=== PATIENT | female | born 1980 | race Caucasian/White ===

== ENCOUNTER 2017-03-13 17:37 | Emergency (ER) | payer OTHER ==
[~2017-03-13] VITALS: Ht 160 cm; Wt 89.8 kg
--- NOTE | 2017-03-13 18:54 | ED GENERAL ADULT ---
History of Present Illness General Chief Complaint: General Adult Stated Complaint: BRONCHITIS/MULTIPLE COMPLAINTS Source: patient Exam Limitations: no limitations Vital Signs & Intake/Output Vital Signs & Intake/Output Vital Signs Date Time Temp Pulse Resp B/P Pulse O2 O2 Flow FiO2 Ox Delivery Rate 03/13 2101 96.7 82 18 141/86 97 Room Air 03/13 1903 98 03/13 1850 Room Air Room Air 03/13 1743 97.3 100 18 170/100 97 Room Air Allergies Coded Allergies: venom-honey bee (HIVES ON LOCATION 03/13/17) Reconcile Medications Albuterol Sulfate (Proair Hfa) 90 MCG HFA.AER.AD 2 PUF INH AD PRN RESPIRATORY (Reported) Ibuprofen (Advil) 200 MG CAPSULE 4 CAP PO TID PAIN (Reported) Oxycodone HCl/Acetaminophen (Percocet 5-325 MG Tablet) 5 MG-325 MG TABLET 1 TAB PO BID pain Prednisone 10 MG TABLET 1 TAB PO BID asthma 4 tabs days 1-3 3 tabs days 4-6 2 tabs days 7-9 1 tab days 10-12 Triage Note: PT WITH MULTIPLE COMPLAINTS WAS SEEN LAST WEEK AT [facility] AND WAS TREATED WITH ABT FOR BRONCHITIS, STATES THAT SHE HAS BEEN GOOGLING HER SYMPTOMS AND IS UNSURE IF SHE WAS TREATED RIGHT. ALSO STATES THAT SHE HAS BEEN HAVING A PIAN IN HER R LEG Triage Nurses Notes Reviewed? yes Onset: Abrupt Duration: day(s):, constant, continues in ED Timing: recent history Injury Environment: home Severity: moderate, severe No Modifying Factors: none : No Patient currently breastfeeds: No HPI: 36-year-old female comes into emergency room for further evaluation of left- sided chest pain that radiates into her left arm and shoulder. Symptoms in the going on continuously for one week. She was recently diagnosed bronchitis and finished a course of azithromycin and prednisone. She smokes daily. She denies any shortness of breath. Patient reports that she has some mild swelling to her right foot. She was concerned about blood clot. Denies any control. Cough with some mucus production. Denies any other associated symptoms. (GARY MCCANN) Past History Travel History Traveled to [place] past 21 day No Medical History Any Pertinent Medical History? see below for history Neurological: NONE EENT: NONE Cardiovascular: NONE Respiratory: NONE Gastrointestinal: NONE Hepatic: NONE Renal: NONE Musculoskeletal: NONE Psychiatric: NONE Endocrine: NONE Blood Disorders: NONE Cancer(s): NONE WRAPPER SORTER/Reproductive: NONE Surgical History Surgical History: non-contributory Psychosocial History What is your primary language Barbadian Tobacco Use: Never used ETOH Use: denies use Illicit Drug Use: denies illicit drug use Family History Hx Contributory? No (GARY MCCANN) Review of Systems Review of Systems Constitutional: Reports: see HPI. EENTM: Reports: no symptoms. Respiratory: Reports: see HPI. Cardiovascular: Reports: see HPI. GI: Reports: no symptoms. Genitourinary: Reports: no symptoms. Musculoskeletal: Reports: no symptoms. Skin: Reports: no symptoms. Neurological/Psychological: Reports: no symptoms. Hematologic/Endocrine: Reports: no symptoms. Immunologic/Allergic: Reports: no symptoms. All Other Systems: Reviewed and Negative (GARY MCCANN) Physical Exam Physical Exam General Appearance: well developed/nourished, no apparent distress, alert Head: atraumatic, normal appearance Eyes: Bilateral: normal appearance, EOMI. Ears, Nose, Throat: normal pharynx, hearing grossly normal Neck: normal inspection Respiratory: normal breath sounds, no respiratory distress Cardiovascular: regular rate/rhythm Back: normal inspection Extremities: normal inspection, normal range of motion Neurologic/Psych: awake, alert, oriented x 3, normal gait, normal mood/affect Skin: intact, normal color Core Measures ACS in differential dx? No CVA/TIA Diagnosis: No Severe Sepsis Present: No Septic Shock Present: No (GARY MCCANN) Progress Differential Diagnoses I considered the following diagnoses in my evaluation of the patient: Bronchitis, pneumonia, pulmonary embolism, NC, DVT, COPD, Plan of Care: Orders Procedure Date/time Status TROPONIN LEVEL 03/13 1854 Complete HUMAN BETA HCG SCREEN 03/13 1854 Complete D-DIMER 03/13 1854 Complete COMPREHENSIVE METABOLIC PANEL 03/13 1854 Complete CBC WITHOUT DIFFERENTIAL 03/13 1854 Complete EKG 03/13 1854 Active Laboratory Tests 03/13/17 1908: Anion Gap 10, Estimated GFR > 60, BUN/Creatinine Ratio 25.0, Glucose 99, Calcium 9.5, Total Bilirubin 0.4, AST 15, ALT 39, Alkaline Phosphatase 79, Troponin I < 0.01, Total Protein 6.7, Albumin 3.8, Globulin 2.9, Albumin/Globulin Ratio 1.3, Total Beta HCG NEGATIVE, D-Dimer < 200, CBC w Diff NO MAN DIFF REQ, RBC 5.04, MCV 88.2, MCH 29.8, RDW 14.5, MPV 6.8 L, Gran % 57.1, Lymphocytes % 31.1, Monocytes % 5.1, Eosinophils % 6.3 H, Basophils % 0.4, Absolute Granulocytes 7.9 H, Absolute Lymphocytes 4.3 H, Absolute Monocytes 0.7 H, Absolute Eosinophils 0.9, Absolute Basophils 0.1, PUBS MCHC 33.8 Diagnostic Imaging: Viewed by Me: Radiology Read. Discussed w/RAD: Radiology Read. Radiology Impression: SERVICE DATE: 03/13/17 EXAM TYPE: RAD - XRY-CHEST XRAY, PA AND LATERAL EXAMINATION: CHEST 2 VIEWS CLINICAL INFORMATION: Chest pain. COMPARISON: None. TECHNIQUE: PA and lateral views of the chest were obtained. FINDINGS: The cardiac silhouette is not enlarged. The mediastinal and hilar contours are unremarkable. There are neither pleural effusions nor pneumothoraces. There are no consolidations. The osseous structures are unremarkable. IMPRESSION: No evidence for acute disease. Initial ED EKG: normal intervals, normal QRS complex, normal sinus rhythm, rate (77), Shortened SD interval (GARY MCCANN) Departure Departure Disposition: HOME OR SELF CARE Condition: Stable Clinical Impression Primary Impression: Bronchitis Secondary Impressions: Chest wall pain, Shortened SD interval Referrals: PATIENT HAS NO PRIMARY CARE DR (PCP/Family) Additional Instructions: Take prednisone and Percocet as prescribed. Follow-up with your primary care doctor. Go over EKG with your primary care doctor. Return if any concerns worsening symptoms. Please go over all results of today's visit with your primary care doctor. Contact your primary care doctor to let them know you were here in the emergency room. There may be nonspecific findings which may not be related to your visit today here in the emergency room but may require further evaluation and chronic monitoring by your primary care doctor. If you had a laceration today the chance of foreign body always remains. You should follow-up with your primary care doctor for recheck in 3-5 days for a wound check. If you had an x-ray done there is a chance that a fracture could have been missed on initial read and you should follow-up with your primary care doctor for repeat x-rays if symptoms persist. If your blood pressure was elevated here in the emergency room please have rechecked by her primary care doctor within the next 48 hours by your primary care doctor. If you were prescribed a narcotic here in the emergency room or any type of controlled substances you're not allowed to drive while taking this medication or operate any type of heavy machinery. Narcotics can make you feel lightheaded dizziness nausea and can cause constipation. You may need to flower picker a stool softener. Thank you for choosing [facility] emergency room. Please return to the emergency room immediately if you have any other concerns worsening of symptoms. Departure Forms: Customer Survey General Discharge Information Prescriptions: Current Visit Scripts Oxycodone HCl/Acetaminophen (Percocet 5-325 MG Tablet) 1 TAB PO BID #10 TAB Prednisone 1 TAB PO BID #30 TAB 4 tabs days 1-3 3 tabs days 4-6 2 tabs days 7-9 1 tab days 10-12 Comments 03/13/2017 9:24:58 PM Patient clinically looks well. Patient is nontoxic-appearing. Patient is in no apparent distress. Symptoms are most consistent with bronchitis and muscular pain. Chest pain is reproducible. Negative d-dimer. No suspicion for pulmonary embolism. Her chest pain has been continuous for one week and she has a normal EKG in regards to no ST segment elevation. Case discussed with Dr. Ramsey. EKG reviewed with Dr. Ramsey. Patient has no cardiac palpitations at all. Follow-up with primary care doctor. Copy of EKG provided to the patient. Return if any other concerns. Patient started back on prednisone for bronchitis. Reevaluated multiple times. All questions address. Patient understands and agrees with plan of care. (MARGARET ENGLAND,GARY) PA/[employer]ER [employer] Co-Sign Statement Statement: ED Attending supervision documentation- [] I saw and evaluated the patient. I have also reviewed all the pertinent lab results and diagnostic results. I agree with the findings and the plan of care as documented in the PA's/TE[employer]'s documentation. [X] I have reviewed the ED Record and agree with the PA's/TE[employer]'s documentation. [] Additions or exceptions (if any) to the PAs/TE[employer]ER [employer]'s note and plan are summarized below: [] (RANI SOLIS,DESIRAE Campbell) Critical Care Note Critical Care Note Critical Care Time: non-applicable (MARGARET ENGLAND,GARY)
[2017-03-13] MEDS ORDERED: ADVIL200 M1 PO (19:11)
[2017-03-13] MEDS ORDERED: PROAIR HFA8.5 GM INH (19:11)
[2017-03-13 19:13] LABS: ABSOLUTE BASOPHIL COUNT 0.1 /CUMM (0.0-0.2); ABSOLUTE EOSINOPHIL COUNT 0.9 /CUMM (0.0-0.7); ABSOLUTE GRANULOCYTE CT 7.9 /CUMM (1.4-6.5); ABSOLUTE LYMPH COUNT 4.3 /CUMM (1.2-3.4); ABSOLUTE MONOCYTE COUNT 0.7 /CUMM (0.10-0.60); BASOPHIL % 0.4 % (0.0-2.0); EOSINOPHIL % 6.3 % (0-5); GRANULOCYTE % 57.1 % (42.2-75.2); HEMATOCRIT 44.5 % (37-47); MEAN CORPUSCULAR HGB 29.8 PG (27.0-31.0); MEAN CORPUSCULAR HGB CONC 33.8 G/DL (33.0-37.0); MEAN CORPUSCULAR VOLUME 88.2 FL (81.0-99.0); MEAN PLATELET VOLUME 6.8 FL (7.4-10.4); PLATELET COUNT 345 /CUMM (130-400); RBC DISTRIBUTION WIDTH 14.5 % (11.5-14.5); RED BLOOD CELL CT 5.04 /CUMM (4.20-5.40); WHITE BLOOD CELL COUNT 13.9 /CUMM (4.8-10.8)
--- NOTE | 2017-03-13 19:44 | RADIOLOGY REPORT ---
EXAMINATION: CHEST 2 VIEWS CLINICAL INFORMATION: Chest pain. COMPARISON: None. TECHNIQUE: PA and lateral views of the chest were obtained. FINDINGS: The cardiac silhouette is not enlarged. The mediastinal and hilar contours are unremarkable. There are neither pleural effusions nor pneumothoraces. There are no consolidations. The osseous structures are unremarkable. IMPRESSION: No evidence for acute disease.
[2017-03-13 21:01] VITALS: BP 141/86
[2017-03-13] MEDS ORDERED: PREDNISONE10 M2 PO (21:02)
[2017-03-13] MEDS ORDERED: PERCOCET 5-3251 EACH PO (21:02)
== END 2017-03-13 21:19 ==
LOC: ERH 17:37
PROVIDERS: Physician Assistant Medical
DX: J40 Bronchitis, not specified as acute or chronic (principal); R07.89 Other chest pain; R94.31 Abnormal electrocardiogram [ECG] [EKG]
CPT/HCPCS: 1263; 80307; 93005; 93010